=== PATIENT | male | born 1970 | race Caucasian/White ===

== ENCOUNTER 2019-04-04 11:57 | Emergency (ER) | payer OTHER ==
[~2019-04-04] VITALS: Ht 182.9 cm; Wt 104.3 kg
--- OUTSIDE RECORDS SUMMARY | 2019-04-04 11:59 | XMS REPORT | Encounter Summary ---
Author Organization Unknown Address [address] [place] [address] Phone [phone] Reason for Visit Medical Complaint Instructions 1. Acute sinusitis rapid flu (A+B) Medrol (Ruben) 4 mg tablets in a dose pack Augmentin 875 mg-125 mg tablet 2. Acute pharyngitis rapid strep group A, throat 3. Acute upper respiratory infection 4. Body mass index 30+ - obesity body mass index: care instructions Discussion Note: None recorded. Plan of Care Patient Instructions Consider using a saline sinus wash or NetiPot for sinus cleansing. Please seek care (PCP, Urgent Care, ER) or return to [facility] if symptoms get worse or do not resolve in 1 week. Reminders Provider Appointments None recorded. Lab Rapid Strep Group a, Throat 04/05/2018 [facility] Rapid Flu (A+B) 04/05/2018 [facility] Referral None recorded. Procedures None recorded. Surgeries None recorded. Imaging None recorded. Medications Name Start Date Augmentin 875 mg-125 mg tablet Take 1 tablet every 12 hours by oral route for 10 days. Medrol (Ruben) 4 mg tablets in a dose pack UAD Medications Administered None recorded. Vitals Height Weight BMI Blood Pressure 6 ft 235 lbs 31.9 kg/m2 111/70 mm[Hg] Lab Results Date Name Specimen Result Interpretation Description Value Range Status Address Rapid Flu (A+B) Influenza a negative [facility]: [address] [place] [address] Influenza B negative [facility]: [address] [place] [address] Rapid Strep Group a, Throat Result negative [facility]: [address] [place] [address] Swab Location Left and Right tonsillar pillars [facility]: [address] [place] [address] Allergies Code Code System Name Reaction Severity Status Onset NKDA Problems None recorded. Procedures None recorded. Vaccine List None recorded. Social History Smoking Status Current Every Day Smoker Past Encounters 04/05/2018 Acute Sinusitis; Acute Pharyngitis; Acute Upper Respiratory Infection; Body Mass Index 30+ - Obesity Radha Katz PA-C: [address] [place] [address], Ph. History of Present Illness [id number]-Uchtrwn Reported By: Patient HPI: Location: head/sinuses, throat, chest. Quality: productive cough, sore throat, colored phlegm, nasal/sinus congestion. Duration: 7days. Context: no foreign travel, non-smoker, sick contact. Modifying factors: OTC medication. Associated Symptoms: no shortness of breath, no wheezing, no change in number of pillows needed to sleep at night, no sweats, no significant weight gain, no significant weight loss, no morning cough, no vomiting, no diarrhea, no rash, no nausea, green sputum, sore throat Review of Systems Basic Reported By: Patient Constitutional: Constitutional: no fever Eyes: Eyes: no eye complaints Chud-Apcl-Cbqwm-Throat: Ears: no ear complaints. Nose: nose/sinus problems. Mouth/Throat: no bleeding gums, no mouth complaints, no teeth problems, sore throat Cardiovascular: Cardiovascular: no chest pain, no shortness of breath, no known heart murmur Respiratory: Respiratory: no wheezing, no shortness of breath, cough Gastrointestinal: Gastrointestinal: no abdominal pain, no vomiting / diarrhea Skin: Skin: no rashes Physical Exam Adult Basic, Adult Female Complete, Adult Male Complete, 14-21 Yr Females Reported By: Patient Constitutional: General Appearance: healthy-appearing, well-nourished, well-developed. Level of Distress: NAD. Ambulation: ambulating normally Psychiatric: Mental Status: active and alert, normal affect, normal mood. Orientation: to time, to place, to person Eyes: Lids and Conjunctivae: non-injected, no discharge, no pallor Vlj-Bpmr-Rfmvy-Throat: Ears: no lesions on external ear, no outer ear tenderness, EACs clear, TMs clear, TM mobility normal. Hearing: no hearing loss. Nose: no lesions on external nose, nares patent, no septal deviation, nasal passages clear, sinus tenderness, nasal discharge--purulent, post nasal drip. Lips, Teeth, and Gums: no mouth or lip ulcers, no bleeding gums, normal dentition. Oropharynx: moist mucous membranes, no exudates, tonsils not enlarged, erythema Neck: Neck: supple. Lymph Nodes: no cervical LAD, no supraclavicular LAD Lungs: Respiratory effort: no dyspnea, no tachypnea, no use of accessory muscles, no intercostal retractions. Percussion: no dullness, flatness, or hyperresonance, no dullness, no hyperresonance, no tympany. Auscultation: breath sounds normal, clear to auscultation, no wheezing, no rales/crackles, no rhonchi, no retractions Cardiovascular: Heart Auscultation: RRR, no murmurs, no gallops, no rub, normal femoral pulse. Neck vessels: no carotid bruits. Pulses including femoral / pedal: normal throughout. Apical impulse: not displaced. Rate and rhythm: regular
--- OUTSIDE RECORDS SUMMARY | 2019-04-04 11:59 | XMS REPORT | Continuity of Care Document ---
Author Author [facility] Interface Address Unknown Phone Unavailable Problems Problem Status Onset Date Classification Date Reported Comments Source Noninfectious gastroenteritis 10/17/2018 Diagnosis 10/17/2018 [facility] Body mass index 30+ - obesity 04/05/2018 Diagnosis 04/05/2018 [facility] Acute upper respiratory infection 04/05/2018 Diagnosis 04/05/2018 [facility] Acute pharyngitis 04/05/2018 Diagnosis 04/05/2018 [facility] Acute sinusitis 04/05/2018 Diagnosis 04/05/2018 [facility] Medications Medication Details Route Status Patient Instructions Ordering Provider Order Date Source Amoxicillin 875 MG / Clavulanate 125 MG Oral Tablet [Augmentin] Augmentin 875 mg-125 mg tablet Take 1 tablet every 12 hours by oral route for 10 days. Active [facility] Medrol (Ruben) 4 mg tablets in a dose pack Medrol (Ruben) 4 mg tablets in a dose pack UAD Active [facility] No Medications Reported No Medications Reported Active [facility] Allergies, Adverse Reactions, Alerts Substance Category Reaction Severity Reaction type Status Date Reported Comments Source Immunizations Immunization Date Given Site Status Last Updated Comments Source Results Order Name Results Value Reference Range Date Interpretation Comments Source Influenza A negative 10/17/2018 [facility] Influenza B negative 10/17/2018 [facility] Influenza A negative 04/05/2018 [facility] Influenza B negative 04/05/2018 [facility] RESULT negative 04/05/2018 [facility] SWAB LOCATION Left and Right tonsillar pillars 04/05/2018 [facility] Vital Signs Vital Sign Value Date Comments Source Diastolic (mm Hg) 85 10/17/2018 [facility] Height 72 10/17/2018 [facility] Systolic (mm Hg) 132 10/17/2018 [facility] Weight 228 10/17/2018 [facility] Diastolic (mm Hg) 70 04/05/2018 [facility] Height 72 04/05/2018 [facility] Systolic (mm Hg) 111 04/05/2018 [facility] Weight 235 04/05/2018 [facility] Encounters Location Location Details Encounter Type Encounter Number Reason For Visit Attending Provider ADM Date DC Date Status Source [place] - [id number] YULI SmithC: [address] [place] [address], Ph. [id number] Radha Katz 04/05/2018 [facility] [place] - [id number] Lora Henning, [employer], S: [address] [place] [address], Ph. [id number] Lora Henning 10/17/2018 [facility] Procedures Procedure Code Date Perfomer Comments Source
--- OUTSIDE RECORDS SUMMARY | 2019-04-04 12:00 | XMS REPORT | Encounter Summary ---
Author Organization Unknown Address [address] [place] [address] Phone [phone] Care Team Providers Care Associate Professor Of Engineering Name Role Phone Zoraida Gomez MD 3 [phone] Reason for Visit Medical Complaint Instructions 1. Noninfectious gastroenteritis rapid flu (A+B) Discussion Note sips of fluids throughout the day. include low sugar electrolyte drinks along w/water. clear liquids x 24 hours then advance diet as tolerated. probiotics over the counter as directed. if symptoms worsen or do not improve over the next 24-48 hours follow-up with PCP or go to ER. Patient educational handouts: No information available. Plan of Care Reminders Provider Appointments None recorded. Lab Rapid Flu (A+B) 10/17/2018 [facility] Referral None recorded. Procedures None recorded. Surgeries None recorded. Imaging None recorded. Medications No Medications Reported Medications Administered None recorded. Vitals Height Weight BMI Blood Pressure 6 ft 228 lbs 30.9 kg/m2 (1) 130/80 mm[Hg] (2) 132/85 mm[Hg] Lab Results Date Name Specimen Result Interpretation Description Value Range Status Address Rapid Flu (A+B) Influenza a negative [facility]: [address] [place] [address] Influenza B negative [facility]: [address] [place] [address] Allergies Code Code System Name Reaction Severity Status Onset NKDA Problems No Known Problems Procedures None recorded. Vaccine List None recorded. Social History Smoking Status Current Every Day Smoker Past Encounters 10/17/2018 Noninfectious Gastroenteritis Lora Henning NP, S: [address] [facility] [place] [address], Ph. History of Present Illness [id number] Reported By: Patient HPI: Quality: cannot identify. Duration: 1 days. Severity: highest temperature 102F. Onset/Timing: first recorded last night. Context: ill contacts. Associated Symptoms: fever/chills, muscle aches; diarrhea x 2. no vomiting. Modifying Factors OTC medication Review of Systems Basic Reported By: Patient Constitutional: Constitutional: fever Buuk-Fbcf-Dtpky-Throat: Ears: no ear complaints. Nose: no nose/sinus problems. Mouth/Throat: no sore throat Cardiovascular: Cardiovascular: no chest pain, no shortness of breath, no known heart murmur Respiratory: Respiratory: no cough, no wheezing, no shortness of breath Gastrointestinal: Gastrointestinal: no abdominal pain, diarrhea Physical Exam Adult Basic, Adult Male Complete Reported By: Patient Constitutional: General Appearance: healthy-appearing, well-nourished, well-developed. Level of Distress: NAD. Ambulation: ambulating normally Psychiatric: Mental Status: active and alert Owp-Ztma-Oiueh-Throat: Ears: no lesions on external ear, no outer ear tenderness, EACs clear, TMs clear. Nose: no lesions on external nose, nares patent, no septal deviation, nasal passages clear, no sinus tenderness, no nasal discharge. Lips, Teeth, and Gums: no mouth or lip ulcers, no bleeding gums, normal dentition. Oropharynx: moist mucous membranes, no erythema, no exudates, tonsils not enlarged Neck: Neck: supple, trachea midline, no masses, FROM. Lymph Nodes: no cervical LAD Lungs: Respiratory effort: no dyspnea, no tachypnea, no use of accessory muscles, no intercostal retractions. Auscultation: breath sounds normal, good air movement Cardiovascular: Heart Auscultation: RRR, no murmurs Abdomen: Bowel Sounds: normal. Inspection and Palpation: soft, no tenderness, no guarding, no rebound tenderness, no masses, no CVA tenderness
--- NOTE | 2019-04-04 12:48 | NUR ---
ORDERS RECEIVED TO CHANGE DOSAGE FOR MORPHINE, SEE eMAR.
[2019-04-04] MEDS ORDERED: MORPHINE SULFATE 5 MG/ML VIAL IV ONE (13:00)
[2019-04-04] MEDS ORDERED: MORPHINE SULFATE INJ 4 MG/ML INJ 1ML IV PRN (13:00)
[2019-04-04] MEDS ORDERED: LIDOCAINE 2%/ EPINEPHRINE 20ML MDV INJ ONE (13:00)
[2019-04-04] MEDS ORDERED: PIPERACILLIN/TAZO 4.5 GM 100 ML IV ONE (13:00)
[2019-04-04] MEDS ORDERED: KETOROLAC TROMETHAMINE 30 MG/ML VIAL IV ONE (13:30)
[2019-04-04 14:22] VITALS: BP 129/83
== END 2019-04-04 14:35 | disposition home or self-care (01) ==
LOC: ER 11:57
DX: K61.1 Rectal abscess (principal); Z80.42 Family history of malignant neoplasm of prostate; Z80.0 Family history of malignant neoplasm of digestive organs
CPT/HCPCS: 87071; 87186; 87205; 99283; J1885; J2001; J2270; J2543